=== PATIENT | male | born 1985 | race Caucasian/White ===

== ENCOUNTER → 2018-04-14 | Outpatient (CLI) | payer BC ==
--- NOTE | 2018-04-14 11:27 | XR ---
EXAMINATION TYPE: XR knee complete RT DATE OF EXAM: 04/14/2018 CLINICAL HISTORY: ACL repair 2008 with chronic pain. TECHNIQUE: Three views of the right knee are obtained. COMPARISON: None. FINDINGS: There is 1.2 x 0.6 cm well-defined osseous fragment at level of tibial condyles consistent with intra-articular loose body may be accounting for patient's symptoms. Mild tricompartment joint space loss is present. Overlying soft tissue is unremarkable. IMPRESSION: As above.
== END ==
LOC: RADXRMAIN 09:38
PROVIDERS: ATTEND Family Medicine
DX: M23.41 Loose body in knee, right knee (principal); M25.861 Other specified joint disorders, right knee

== ENCOUNTER 2020-06-12 14:45 | Emergency (ER) | payer BC ==
[2020-06-12 14:50] VITALS: BP 143/87; PULSE 88; RESP 20; TEMP 98.3
[2020-06-12] MEDS ORDERED: LIDOCAINE 1%-EPI 1:100,000 20 ML VIAL SQ STA (15:19)
[2020-06-12] MEDS ORDERED: DIPH,PERTUS(ACELL)TETVAC-LF 0.5 ML VIAL IM ONE (15:19)
[2020-06-12] MEDS ORDERED: BACITRACIN OINT 1 EACH PACKET TOPICAL STA (16:22)
--- NOTE | 2020-06-12 16:22 | ED ---
General Adult HPI - General Chief complaint: Wound/Laceration Stated complaint: Lt Arm Laceration Time Seen by Provider: 06/12/20 15:01 Source: patient, RN notes reviewed Mode of arrival: ambulatory Limitations: no limitations - History of Present Illness Initial comments: 34-year-old male presents to the emergency room for laceration. Patient reports he was using a supervisor mattress and boxsprings to cut open a box. He slipped and cut his arm. Denies any weakness or difficulty moving the fingers or the hand. Denies any other injuries. Tetanus is not up-to-date.Patient has no other complaints at this time including shortness of breath, chest pain, abdominal pain, nausea or vomiting, headache, or visual changes. - Related Data Allergies Allergy/AdvReac Type Severity Reaction Status Date / Time terbinafine [From Lamisil] Allergy Rash/Hives Verified 06/12/20 14:49 Review of Systems ROS Statement: Those systems with pertinent positive or pertinent negative responses have been documented in the HPI. ROS Other: All systems not noted in ROS Statement are negative. Past Medical History Past Medical History: No Reported History History of Any Multi-Drug Resistant Organisms: None Reported Past Surgical History: Orthopedic Surgery Additional Past Surgical History / Comment(s): rt knee,rt leg Past Psychological History: No Psychological Hx Reported Smoking Status: Never smoker Past Alcohol Use History: Occasional Past Drug Use History: None Reported General Exam Limitations: no limitations General appearance: alert, in no apparent distress Head exam: Present: atraumatic, normocephalic, normal inspection Eye exam: Present: normal appearance, PERRL, EOMI. Absent: scleral icterus, conjunctival injection, periorbital swelling ENT exam: Present: normal exam, mucous membranes moist Neck exam: Present: normal inspection. Absent: tenderness, meningismus, lymphad enopathy Respiratory exam: Present: normal lung sounds bilaterally. Absent: respiratory distress, wheezes, rales, rhonchi, stridor Cardiovascular Exam: Present: regular rate, normal rhythm, normal heart sounds. Absent: systolic murmur, diastolic murmur, rubs, gallop, clicks GI/Abdominal exam: Absent: distended Extremities exam: Present: full ROM (Full range motion noted of the left arm, hand, wrist, and digits), normal capillary refill (Capillary refill is less than 2 seconds, radial pulse 2+ left upper extremity), other (Patient has a 3 cm laceration noted to the volar aspect of the left forearm. No evidence of foreign body. No deep structure injury.) Course Vital Signs 06/12/20 14:45 Temperature 98.3 F Pulse Rate 88 Respiratory 20 Rate Blood Pressure 143/87 O2 Sat by Pulse 97 Oximetry Procedures - Laceration Laceration #1 Consent Obtained: verbal consent Indication: laceration Site: upper extremity Size (cm): 3 Description: linear Depth: simple, single layer Anesthetic Used: lidocaine 1%, with epi Anesthesia Technique: local infiltration Amount (mls): 4 Pre-repair: wound explored, irrigated extensively Type of Sutures: nylon Size of Sutures: 4-0 Number of Sutures: 6 Technique: simple, interrupted Patient Tolerated Procedure: well, no complications Medical Decision Making - Medical Decision Making Laceration was irrigated and repaired using simple interrupted sutures. Tetanus updated. Antibiotic ointment applied. Patient will follow up with his doctor. He will return for any worsening symptoms. Disposition Clinical Impression: Laceration Disposition: HOME SELF-CARE Condition: Good Instructions (If sedation given, give patient instructions): Care For Your Stitches (ED), Laceration (ED) Additional Instructions: Please keep the area clean. Apply antibiotic ointment twice per day. return to the ER for suture removal in 7-10 days. Return for any other worsening symptoms or signs of infection. Is patient prescribed a controlled substance at d/c from ED?: No Referrals: Yehuda Tompkins MD [Primary Care Provider] - 1-2 days Time of Disposition: 16:21
== END 2020-06-12 16:31 | disposition home or self-care (01) ==
LOC: EC 14:45
DX: S51.812A Laceration without foreign body of left forearm, initial encounter (principal); W26.8XXA Contact with other sharp object(s), not elsewhere classified, initial encounter
CPT/HCPCS: 12002; 90471; 90715; 96372; 99282